=== PATIENT | male | born 1980 | race African-American/Black ===

== ENCOUNTER 2017-09-06 13:35 | Emergency (ER) | payer MEDICAID ==
[~2017-09-06] VITALS: Ht 190.5 cm; Wt 118.0 kg
[2017-09-06] MEDS ORDERED: IBUPROFEN 600MG TABLET PO ONE (14:15)
[2017-09-06 14:36] VITALS: BP 129/80
== END 2017-09-06 15:45 | disposition home or self-care (01) ==
LOC: ER 14:58
DX: S10.93XA Contusion of unspecified part of neck, initial encounter (principal); S20.229A Contusion of unspecified back wall of thorax, initial encounter; F12.10 Cannabis abuse, uncomplicated; Z88.8 Allergy status to other drugs, medicaments and biological substances; V49.88XA Car occupant (driver) (passenger) injured in other specified transport accidents, initial encounter; Y93.89 Activity, other specified; Y92.89 Other specified places as the place of occurrence of the external cause; Y99.8 Other external cause status
CPT/HCPCS: 99282